=== PATIENT | male | born 2005 ===

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

== ENCOUNTER → 2024-06-05 | Outpatient (REF) | payer SELFPAY ==
[2024-06-05 22:52] LABS: Trichomonas vaginalis (AMP) NOT DETECTED (NEGATIVE)
[2024-06-05 23:15] LABS: GC DNA AMPLIFICATION NEGATIVE (NEGATIVE)
== END ==
LOC: M LAB REF 21:03
PROVIDERS: ATTEND Nurse Practitioner Family
DX: Z11.3 Encounter for screening for infections with a predominantly sexual mode of transmission (principal)

== ENCOUNTER → 2024-06-06 | Outpatient (REF) | payer SELFPAY ==
[2024-06-06 19:31] LABS: HIV 1&2 SCREEN NEGATIVE (NEGATIVE)
[2024-06-06 19:39] LABS: HEPATITIS C VIRUS ABY INDEX 0.05 INDEX (<0.8)
== END ==
LOC: M LAB REF 16:32
PROVIDERS: ATTEND Nurse Practitioner Family
DX: Z11.3 Encounter for screening for infections with a predominantly sexual mode of transmission (principal)